=== PATIENT | female | born 1960 | race Caucasian/White ===

== ENCOUNTER 2023-09-09 06:00 | Day surgery (SDC) | payer OTHER ==
[2023-09-06 10:47] VITALS: BMI 24.1
[2023-09-09 09:13] VITALS: TEMP 98.1
[2023-09-09 09:25] VITALS: PULSE 52
[2023-09-09 09:43] VITALS: BP 136/70; RESP 16
== END 2023-09-09 09:50 | disposition home or self-care (01) ==
LOC: JASU-ENDO 06:00
PROVIDERS: ATTEND Internal Medicine Gastroenterology
PROC: 0DJD8ZZ Inspection of Lower Intestinal Tract, Via Natural or Artificial Opening Endoscopic (ICD-10-PCS; principal; 2023-09-09 09:00)
DX: Z12.11 Encounter for screening for malignant neoplasm of colon (principal); K57.30 Diverticulosis of large intestine without perforation or abscess without bleeding; K64.8 Other hemorrhoids